=== PATIENT | female | born 1990 | race Caucasian/White ===

== ENCOUNTER 2016-04-23 09:36 | Emergency (ER) | payer SELFPAY ==
[~2016-04-23] VITALS: Wt 71.5 kg
[2016-04-23] MEDS ORDERED: ONDANSETRON 4 MG INJ IV STA (10:11)
[2016-04-23] MEDS ORDERED: SOD CHLORIDE 0.9% 1,000 ML IV STA (10:11)
[2016-04-23 11:14] LABS: URINE BLOOD (Dip) POC Negative (NEGATIVE)
[2016-04-23] MEDS ORDERED: SODI126M NASAL (11:33)
[2016-04-23] MEDS ORDERED: ONDA4TAB8 PO (11:33)
--- NOTE | 2016-04-23 17:15 | ERD ---
DATE OF SERVICE: 04/23/2016 HISTORY OF PRESENT ILLNESS: Patient is a 25-year-old female coming in complaining of URI symptoms. She states she has also had a few episodes of vomiting. She has had no pelvic pain. She is 17 wee ks . Her due date is 09/25/2016. She denies any vaginal bleeding. No pelvic pain. She t ook Claritin earlier today. She has a runny nose, with sore throat with nausea, but no fevers. MEDICAL HISTORY: Autonomic disorder with gastroparesis. ALLERGIES TO MEDICATIONS: SULFA, PREDNISONE. SURGICAL HISTORY: Metal plate in her ulna and tonsillectomy. SOCIAL HISTORY: Denies. REVIEW OF SYSTEMS: A 12-point review of systems was done. Refer to HPI for positives, all other sy stems negative. PHYSICAL EXAMINATION VITAL SIGNS: Temperature is 98.5, pulse 83, blood pressure is 133/68, respiratory 17, O2 saturation 97% on room air. Pain intensity is 0/10. GENERAL: The patient is well-appearing, well-nourished, no acute distress. HEENT: Atraumatic. Conjunctivae are pink. Pupils equal, round, and reactive to light. There is no s cleral icterus. Tympanic membranes clear bilaterally. Oropharynx clear. No nystagmus or photophobia . NECK: C-spine is soft and supple. There is no meningismus. There is no cervical lymphadenopathy. No JVD. No bruits. No goiter. CHEST: Clear to auscultation bilaterally. There are no rales, wheezes or rhonchi. HEART: Regular rate and rhythm. No murmurs, clicks, rubs or gallops. No S3 or S4. ABDOMEN: Soft, nontender and nondistended. Good bowel sounds. No rebound or guarding. No gross alexus tonitis. No gross organomegaly or masses. No Vega sign or McBurney point tenderness. BACK: No midline or flank tenderness. EXTREMITIES: Equal pulses bilaterally. There is no peripheral clubbing, cyanosis or edema. No focal swelling or erythema. Full range of motion. Grossly neurovascularly intact. NEURO: Alert and oriented. Cranial nerves 2-12 intact. Motor strength in all 4 extremities with 5/5 strength. Sensation grossly intact. Normal speech and gait. Babinski negative. DTR 2+ throughout. SKIN: There is no apparent rash or petechia. The skin is warm and dry. HEMATOLOGIC AND LYMPHATIC: There is no evidence of excessive bruising or lymphedema. No gross cervi kaz, axillary, or inguinal lymphadenopathy. PSYCHIATRIC: The patient does not appear anxious or depressed. Normal orientation and judgment. EMERGENCY ROOM COURSE: The patient was given a liter of normal saline in the ER with Zofran p.o. ch allenge. Patient passed p.o. challenge. Patient also had a urine checked in the ER. Patient's uri ne showed trace protein, otherwise negative leukocytes, negative nitrites, negative glucose, negativ e blood. Upon reevaluation, the patient stated her symptoms had improved. DIAGNOSES: 1. Upper respiratory infection. 2. Vomiting. MEDICAL DECISION MAKING: I have low suspicion for complication, low suspicion for acute a bdominal etiology. Low suspicion for meningitis or sepsis, low suspicion for pneumonia, low suspici on for bacterial HEENT infection. DISCHARGE: The patient is discharged stable. Patient given prescription for Zofran and a prescript ion for saline nose rinse. Patient was recommended not to take other cold medication given she is . All other questions answered at time of discharge. Discharge summary given at the time o f departure. Patient understood and complied with plan. Dictated By: NISHI BAUER for JYOTI SIERRA/TRISTAN Conf#: [id number] DID#: [id number]
== END 2016-04-23 11:51 | disposition home or self-care (01) ==
LOC: FTE 09:36
DX: O99.511 Diseases of the respiratory system complicating pregnancy, first trimester (principal); J06.9 Acute upper respiratory infection, unspecified; Z3A.17 17 weeks gestation of pregnancy
CPT/HCPCS: 81003; 96374; 99284; J2405; J7030

== ENCOUNTER 2016-06-06 09:17 | Emergency (ER) | payer OTHER ==
[~2016-06-06] VITALS: Wt 72.4 kg
[~2016-06-06 09:17] MED LIST: ONDA4TAB8 PO; SODI126M NASAL
[2016-06-06] MEDS ORDERED: ACET500C5 PO (10:00)
[2016-06-06] MEDS ORDERED: PRENAT PO (11:24)
[2016-06-06] MEDS ORDERED: CITA20TA11 PO (11:25)
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
== END 2016-06-06 10:42 | disposition home or self-care (01) ==
LOC: FTE 09:17
DX: O9A.212 Injury, poisoning and certain other consequences of external causes complicating pregnancy, second trimester (principal); S16.1XXA Strain of muscle, fascia and tendon at neck level, initial encounter; S29.012A Strain of muscle and tendon of back wall of thorax, initial encounter; V49.40XA Driver injured in collision with unspecified motor vehicles in traffic accident, initial encounter; Z3A.24 24 weeks gestation of pregnancy
CPT/HCPCS: 99282

== ENCOUNTER 2016-06-06 11:00 | Outpatient (CLI) | payer OTHER ==
[~2016-06-06] VITALS: Ht 160 cm; Wt 75.4 kg
[~2016-06-06 11:00] MED LIST changes: +ACET500C5 PO
[2016-06-06] MEDS ORDERED: PRENAT PO (11:24)
[2016-06-06] MEDS ORDERED: CITA20TA11 PO (11:25)
[2016-06-06 11:28] VITALS: BP 108/58; PULSE 68; RESP 18; Ht 160 cm; Wt 75.4 kg
[2016-06-06] MEDS ORDERED: ACETAMINOPHEN 325 MG TAB PO ONE (13:00)
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
== END 2016-06-06 15:40 | disposition home or self-care (01) ==
LOC: OBT 11:00 → L-D 11:01 → OBT 15:40
PROVIDERS: ATTEND Obstetrics & Gynecology
DX: O60.02 Preterm labor without delivery, second trimester (principal); Z3A.24 24 weeks gestation of pregnancy
CPT/HCPCS: 76815; 76817; G0463

== ENCOUNTER 2016-08-27 13:06 | Inpatient (IN) | payer OTHER ==
[~2016-08-27] VITALS: Ht 160 cm; Wt 81.0 kg
[~2016-08-27 13:06] MED LIST changes: -ACET500C5 PO; +CITA20TA11 PO; -ONDA4TAB8 PO; +PRENAT PO; -SODI126M NASAL
[2016-08-27 14:00] VITALS: Ht 160 cm; Wt 81.0 kg
[2016-08-27 14:01] VITALS: BP 117/73; PULSE 71; RESP 20
[2016-08-27] MEDS ORDERED: TERBUTALINE 1 MG/ML INJ SC ONE (14:30)
[2016-08-27] MEDS ORDERED: LACTATED RINGER'S 1,000 ML IV SCH ×2 (14:30→15:35)
--- NOTE | 2016-08-27 15:31 | RADRPT ---
PROCEDURE: US OB biophysical profile. Ultrasound cervix CLINICAL INDICATION: decreased movements, pelvic pain TECHNIQUE: Multiple sonographic images of the pelvis were obtained. In addition, transvaginal imag es of the cervix were obtained. The images were reviewed on a PACS workstation. COMPARISON: No prior studies are available for comparison. FINDINGS: The cervix is markedly short and incompetent and cannot be measured. The cervix is open. There is a single viable intrauterine gestation. Cardiac activity is present with 144 beats per min hamilton. There is a vertex presentation. The placenta is anterior. There is no evidence of placental abruption. There is a normal amount of amniotic fluid with an EDE = 12.4 cm. Biophysical profile: movement 2/2 tone 2/2. breathing 2/2 EDE 2/2 Total 11/21 RPTAT: AA . IMPRESSION: Normal biophysical profile. Cervix is markedly short and incompetent and could not be measured . Open cervix. .Lenin Hua MD, MD Date Time Electronically viewed and signed by .Lenin Hua MD, MD on 08/27/2016 15:31 .S/
[2016-08-27] MEDS ORDERED: AMPICILLIN 2 GM/NS (PMX) 100 ML ONE (15:42)
[2016-08-27 15:49] LABS: ADD SCAN DIFF NO
[2016-08-27 15:54] LABS: BASOPHILS % 0.5 % (0.0-2.0); EOSINOPHILS # 0.1 10^3/ul (0.0-0.5); EOSINOPHILS % 0.9 % (0.0-7.0); HEMATOCRIT 32.5 % (37.0-47.0); LYMPHOCYTES # 1.4 10^3/ul (0.8-2.9); LYMPHOCYTES % 23.2 % (15.0-51.0); MEAN CORPUSCULAR HEMOGLOBIN 28.9 pg (29.0-33.0); MEAN CORPUSCULAR HGB CONC 33.8 g/dl (32.0-37.0); MEAN CORPUSCULAR VOLUME 85.5 fl (82.0-101.0); MEAN PLATELET VOLUME 11.3 fl (7.4-10.4); MONOCYTE # 0.5 10^3/ul (0.3-0.9); MONOCYTES % 8.4 % (0.0-11.0); NEUTROPHIL # 3.8 10^3/ul (1.6-7.5); NEUTROPHILS % 65.8 % (39.0-77.0); PLATELET COUNT 192 10^3/UL (140-415); RED CELL DISTRIBUTION WIDTH 12.6 % (11.5-14.5); WHITE BLOOD COUNT 5.8 10^3/ul (4.8-10.8)
[2016-08-27] MEDS ORDERED: LIDOCAINE 1% (MPF) 30 ML INJ INJ PRN (16:00)
[2016-08-27] MEDS ORDERED: IBUPROFEN 600 MG TAB PO PRN (16:00)
[2016-08-27] MEDS ORDERED: CARBOPROST 250 MCG INJ IM PRN (16:00)
[2016-08-27] MEDS ORDERED: OXYTOCIN 30 UNITS/LR 500 ML IV PRN (16:00)
[2016-08-27] MEDS ORDERED: BUTORPHANOL 2 MG INJ IV PRN (16:00)
[2016-08-27] MEDS ORDERED: MISOPROSTOL 200 MCG TAB PR PRN (16:00)
[2016-08-27] MEDS ORDERED: AMPICILLIN 2 GM/NS (PMX) 100 ML IV ONE (16:00)
[2016-08-27] MEDS ORDERED: METHYLERGONOVINE 0.2 MG INJ IM PRN (16:00)
[2016-08-27] MEDS ORDERED: LACTATED RINGER'S 1,000 ML IV PRN (16:00)
[2016-08-27] MEDS ORDERED: OXYTOCIN 30 UNITS/LR 500 ML IV SCH (16:00)
[2016-08-27 16:09] LABS: INR 0.96; PROTIME 12.8 Sec (12.2-14.2)
[2016-08-27 16:10] LABS: PARTIAL THROMBOPLASTIN TIME 26.2 Sec (25.0-35.0)
[2016-08-27] MEDS ORDERED: BETAMET NA PHOS/AC(6 MG/ML) 5ML INJ IM SCH (16:30)
[2016-08-27] MEDS ORDERED: FENTAnyl 2MCG/ML-ROPIV 0.2% 100 ML ONE (17:25)
[2016-08-27] MEDS ORDERED: NALOXONE (0.4 MG/ML) INJ IV PRN (19:30)
[2016-08-27] MEDS ORDERED: FENTAnyl 2MCG/ML-ROPIV 0.2% 100 ML BAG EPI SCH (19:30)
[2016-08-27] MEDS: AMPICILLIN 1 GM/NS (PMX) 50 ML IV SCH (19:57)
[2016-08-27] MEDS: OXYTOCIN 30 UNITS/LR 500 ML IV SCH (23:56)
[2016-08-28] MEDS: AMPICILLIN 1 GM/NS (PMX) 50 ML IV SCH
[2016-08-28] MEDS: OXYTOCIN 30 UNITS/LR 500 ML IV SCH ×3 (00:25→05:06)
[2016-08-28] MEDS ORDERED: LACTATED RINGER'S 1,000 ML IV* SCH (01:06)
--- NOTE | 2016-08-28 01:15 | LDN ---
Date/Time of Note Date/Time of Note DATE: 08/28/16 TIME: 01:11 Delivery Summary of a viable baby girl weighing 3240 grams or 7# 2oz, 19" long, and with Apgars of 8/9. Weeks of Gestation 35w 6d Placenta Delivered: Spontaneously Meconium: none Episiotomy: No Perineal laceration: 3 Laceration repair: Partial third degree perineal laceration repaired with 2-0 and 3-0 chromic and vicryl sutures. Anesthesia type: Epidural Estimated blood loss: 400 Sponge & Needle done & correct: Yes All needle counts correct: Yes Any foreign bodies felt in the: No (vagina) Problems: Infant Delivery Information Sex Infant Sex: female Apgars 1 Minute: 8 5 Minute: 9 Suctioning Nose & mouth suctioned at alexus: Yes Delee suction performed: Yes Umbilical Cord Umbilical cord with: 3 Vessels Cord presentations: no nuchal cord Cord Blood was obtained: Yes Mother & Baby Disposition Disposition Mom & Baby to Maternity; Good: Yes Baby to NICU: No JOSS VILLAREAL MD August 28, 2016 01:15
--- NOTE | 2016-08-28 01:24 | HP ---
Date/Time of Note Date/Time of Note DATE: 08/28/16 TIME: 01:16 OB - History Hx of Present Free Text/Dictation 25 y.o. G1 with an IUP at 35w 6d came in and been having cramping and mucousy with blood tinged d/c x 2 days and was found to be 6 cm dilated. Estimated Due Date: Sep 25, 2016 : 1 Para: 0 Care: Good Care Ultrasounds: Normal mid trimester US Obstetrical Complications: None Medical Complications: Other (Anxiety/depression. Postural orthostatic tachycardia syndrome (POTS). Gastroparesis. Pelvic laxity.) Past Family/Social History * Past Medical, Surgical, Family and Obstetric Histories reviewed from chart. Blood Type: O+ Rubella: immune RPR/VDRL: Negative GBS Status: Positive HBsAG: Negative OB Admission Exam Vital Signs Vital Signs Vital Signs Date Time Temp Pulse Resp B/P Pulse Ox O2 Delivery O2 Flow Rate FiO2 08/27/16 14:01 97.7 71 20 117/73 Room Air Physical Exam HEENT: WNL Heart: Rhythm Normal Lungs: Clear Abdomen: WNL Extremities: Normal Reflexes: Normal Cervical Dilatation: 6cm Effacement: 75% Station: -2 Membranes: Intact Amniotic Fluid: Clear Heart Rate: 140's Accelerations: Accelerations Present Decelerations: No Decelerations Varibility: Moderate Contractions on Admission: < 5 Minutes Apart Last 72 hours Lab Results CBC & BMP 08/27/16 15:15 OB Assessment/Plan Reason for admission: active labor, labor Plan: Expectant Management Other plan: Betamethasone. Antibiotic prophylaxis JOSS VILLAREAL MD August 28, 2016 01:24
[2016-08-28] MEDS ORDERED: OXYTOCIN 30 UNITS/LR 500 ML IV PRN (01:30)
[2016-08-28] MEDS ORDERED: MISOPROSTOL 200 MCG TAB PR PRN (01:30)
[2016-08-28] MEDS ORDERED: METHYLERGONOVINE 0.2 MG INJ IM PRN (01:30)
[2016-08-28] MEDS ORDERED: LANOLIN 7 GM TUBE TOP PRN (01:30)
[2016-08-28] MEDS ORDERED: BENZOCAINE 20% 56 ML SPRAY TOP PRN (01:30)
[2016-08-28] MEDS ORDERED: WITCH HAZEL/GLYCERIN PAD PR PRN (01:30)
[2016-08-28] MEDS ORDERED: CARBOPROST 250 MCG INJ IM PRN (01:30)
[2016-08-28] MEDS ORDERED: OXYCODONE/ASPIRIN (4.88/325) TAB PO PRN (01:30)
[2016-08-28 03:20] VITALS: BP 116/70; PULSE 62; RESP 20
[2016-08-28] MEDS: IBUPROFEN 600 MG TAB PO SCH ×4 (05:14→23:31)
[2016-08-28 08:00] VITALS: BP 112/65; PULSE 85; RESP 14
[2016-08-28] MEDS: CITALOPRAM 20 MG TAB PO SCH (09:53)
[2016-08-28 12:30] VITALS: BP 118/73; PULSE 88; RESP 16
[2016-08-28 16:30] VITALS: BP 110/68; PULSE 102; RESP 16
[2016-08-28 19:30] VITALS: BP 108/64; PULSE 86; RESP 19
--- NOTE | 2016-08-28 21:05 | QN ---
Documentation Comment PPD #1 Pt doing well but baby went to NICU for poor feeding and low blood sugar so pt is a little weepy. Otherwise mild discomfort from delivery that Advil takes care of. T=99.1 BP 105/64 Fundus is firm. Lochia moderate. Ext NT, no edema. CBC in the AM P: Continue care. As pt delivered just before MN hopefully she will be able to stay until 08/30. JOSS VILLAREAL MD August 28, 2016 21:05
[2016-08-28] MEDS ORDERED: DIPHENHYDRAMINE 25 MG CAP PO PRN (21:30)
[2016-08-29 06:00] VITALS: BP 104/59; PULSE 70; RESP 19
[2016-08-29] MEDS: IBUPROFEN 600 MG TAB PO SCH ×3 (06:09→17:41)
[2016-08-29 07:30] VITALS: BP 98/59; PULSE 72; RESP 18
[2016-08-29 08:16] LABS: ADD SCAN DIFF NO
[2016-08-29 08:22] LABS: BASOPHILS % 0.3 % (0.0-2.0); EOSINOPHILS # 0.1 10^3/ul (0.0-0.5); EOSINOPHILS % 0.6 % (0.0-7.0); HEMATOCRIT 24.3 % (37.0-47.0); LYMPHOCYTES # 2.5 10^3/ul (0.8-2.9); LYMPHOCYTES % 19.6 % (15.0-51.0); MEAN CORPUSCULAR HEMOGLOBIN 28.8 pg (29.0-33.0); MEAN CORPUSCULAR HGB CONC 32.9 g/dl (32.0-37.0); MEAN CORPUSCULAR VOLUME 87.4 fl (82.0-101.0); MEAN PLATELET VOLUME 11.7 fl (7.4-10.4); MONOCYTE # 0.9 10^3/ul (0.3-0.9); MONOCYTES % 6.9 % (0.0-11.0); NEUTROPHIL # 8.8 10^3/ul (1.6-7.5); NEUTROPHILS % 70.5 % (39.0-77.0); PLATELET COUNT 178 10^3/UL (140-415); RED BLOOD COUNT 2.78 10^6/ul (4.20-5.40); WHITE BLOOD COUNT 12.5 10^3/ul (4.8-10.8)
[2016-08-29] MEDS: CITALOPRAM 20 MG TAB PO SCH (09:40)
[2016-08-29] MEDS ORDERED: DIBUCAINE 1% 30 GM OINT TOP PRN (13:30)
[2016-08-29 14:55] LABS: RUBELLA ANTIBODY - IGG 4.74 index
[2016-08-29 17:00] VITALS: BP 112/59; PULSE 68; RESP 19
[2016-08-29] MEDS ORDERED: MAGNESIUM HYDROXIDE 30ML CUP PO ONE (17:00)
--- NOTE | 2016-08-29 20:02 | PD.PPDC ---
NEUROSURGERY SPINE PHYSICIAN Discharge Instruction Condition Patient Condition: Good Diet Diet: Resume Regular Diet Activity/Restrictions Activity: Normal Activity May Shower Restrictions: No Sexual Activity Nothing in the Vagina No Nunda No Tampons, douche Follow-up Follow-up with Physician: 6, Week/Weeks Return to clinic for SLABBER LIGHT Instructions: Fever greater than 101 Chills Worsening abdominal pain Excessive Vaginal Bleeding OB Instructions: Breast Tenderness Depression JOSS VILLAREAL MD August 29, 2016 20:02
--- NOTE | 2016-08-29 20:06 | DS ---
Date/Time of Note Date/Time of Note DATE: 08/29/16 TIME: 20:04 Obstetrical Discharge Record Final Diagnosis Final Diagnosis: delivered Vaginal Delivery Obstetrical Delivery: Spontaneous, Laceration, Repaired Complications Labor Augmentation: No Induction: No Condition on Discharge Physical Assessment Last Vitals: T=98.3 BP 112/59 Voiding: Yes Bowel Movement: Yes Breast: Soft, non-tender Fundus: Firm Episiotomy: Laceration intact. Calf Tenderness: No Patient Condition: JOSS Manning MD August 29, 2016 20:06
[2016-08-29 20:30] VITALS: BP 116/73; PULSE 80; RESP 19
[2016-08-30] MEDS ORDERED: DIPHTH/TET/ACEL PERTUSS (ADULT) 0.5 ML VIAL IM* ONE (09:00)
== END 2016-08-29 23:15 | disposition home or self-care (01) | DRG 775 ==
LOC: OBT 13:06 → L-D 13:06 → OBT 15:25 → PP1 08-28 03:15
PROVIDERS: ADMIT Obstetrics & Gynecology; ATTEND Obstetrics & Gynecology
PROC: 10E0XZZ Delivery of Products of Conception, External Approach (ICD-10-PCS; principal; 2016-08-28)
PROC: 0DQR0ZZ Repair Anal Sphincter, Open Approach (ICD-10-PCS; 2016-08-28)
DX: O60.14X0 Preterm labor third trimester with preterm delivery third trimester, not applicable or unspecified (principal); O70.20 Third degree perineal laceration during delivery, unspecified; Z3A.35 35 weeks gestation of pregnancy; Z37.0 Single live birth
CPT/HCPCS: 36415; 62319; 76817; 76818; 85025; 85610; 85730; 86592; 86762; 86900; 86901; 87340; 96360; 99464; G0463; J0290; J0702; J2590; J3010; J7120

== ENCOUNTER 2018-05-10 09:54 | Day surgery (SDC) | payer OTHER ==
--- NOTE | 2018-05-09 21:46 | HP ---
Date/Time of Note Date/Time of Note DATE: 05/09/18 TIME: 21:28 Assessment/Plan VTE Prophylaxis SCD contraindicated: low risk/ambulating Pharmacological prophylaxis: NA/contraindicated Pharm contraindication: low risk/ambulating Lines/Catheters IV Catheter Type (from Nrsg): Peripheral IV Central line still needed: No Urinary Cath still in place: No Assessment/Plan Assessment/Plan A: Desires permanent sterilization. POT syndrome. Fibromyalgia. Chronic fatigue. Arthritis. Anxiety d/o. Depression. Gastroparesis. P: Laparoscopic bilateral tubal fulguration. Remove IUD. HPI/ROS Admit Date/Time Admit Date/Time May 10, 2018 Hx of Present Illness 27 y.o. currently with an IUD in place requesting permanent sterilization and is planned for a laparoscopic bilateral tubal fulguration. ROS Constitutional: no complaints Respiratory: no complaints Cardiovascular: no complaints Gastrointestinal: no complaints Genitourinary: no complaints Musculoskeletal: no complaints Psychological: no complaints, nl mood/affect PMH/Family/Social Past Medical History Pt has POTS (postural orthostatic tachycardia syndrome), a disorder of the autonomic nervous system and for which, to minimize problems during anesthesia and procedures, she needs to be well hydrated and blocks (epidural and spinals) need to be very slow! Fibromyalgia. Arthritis. Chronic fatigue. Anxiety d/o. Major depression;sees a therapist and a psychiatrist. Gastroparesis Medications Effexor 150 mg. Naltrexone 3 mg q day. Mirena IUD. Coded Allergies: prednisone (Verified Allergy, Intermediate, MOOD CHANGES, 06/06/16) Sulfa (Sulfonamide Antibiotics) (Verified Allergy, Mild, HIVES, 06/06/16) Past Surgical History [place] teeth. Metal plate right ulna. Family History Significant Family History: cancer (Paternal GM-breast), diabetes (mother), hypertension (maternal GF) Social History Alcohol Use: rarely Smoking Status: Never smoker Drug Use: none Exam/Review of Systems Vital Signs Vitals BP 114/70 Exam Constitutional: alert, oriented, well developed Psych: no complaints, nl mood/affect Head: normocephalic, atraumatic Neck: supple, non-tender Respiratory: clear to auscultation, normal air movement Cardiovascular: regular rate and rhythm Gastrointestinal: soft, nl liver, spleen, non-tender Genitourinary - Female: nl adnexae, nl external genitalia Musculoskeletal: nl extremities to inspection, nl gait and stance Neurological: nl mental status, nl speech JOSS VILLAREAL MD May 09, 2018 21:39
[~2018-05-10] VITALS: Ht 160 cm; Wt 81.8 kg
[2018-05-10] VITALS (12 sets, daily range): BP systolic 103–121; BP diastolic 49–78; PULSE 62–96; RESP 16–23; Ht 160 cm; Wt 81.8 kg
[~2018-05-10 09:54] MED LIST changes: +NALTREXONE 3 MG; +VENL150C PO
[2018-05-10] MEDS ORDERED: LACTATED RINGER'S 500 ML IV ONE (10:00)
[2018-05-10] MEDS ORDERED: VENL150C PO (10:53)
[2018-05-10] MEDS ORDERED: TREX50 PO (10:54)
[2018-05-10] MEDS ORDERED: LACTATED RINGER'S 1,000 ML IV SCH (11:00)
[2018-05-10] MEDS ORDERED: BUPIVACAINE 0.25% (MPF) 30 ML INJ ONE (12:15)
--- NOTE | 2018-05-10 12:26 | PREAC ---
Date/Time of Note Date/Time of Note DATE: 05/10/18 TIME: 12:23 Anesthesia Eval and Record Evaluation Time Pre-Procedure Interview DATE: 05/10/18 TIME: 12:23 Age 27 Sex female NPO: 8 hrs Preoperative diagnosis sterilization Planned procedure BTL Past Medical History Past Medical History: Includes Cardio: Dyslipidemia Neuro: Peripheral neuropathy GI: GERD, Obesity, Morbid obesity Psych: Anxiety Surgery & Anesthesia Issues No known issue Meds Anticoagulation: No Beta Joby within 24 hr: No Reason Beta Joby not given: Pt. not on B-Joby Reported Medications Naltrexone Hcl (Trexan) 50 Mg Tab, 3 MG PO DAILY, TAB 05/10/18 Venlafaxine Hcl* (Effexor XR*) 150 Mg Cap.sr.24h, 150 MG PO DAILY, CAP 05/10/18 Discontinued Reported Medications Venlafaxine Hcl* (Effexor XR*) 150 Mg Cap.sr.24h, 150 MG PO DAILY, CAP 05/09/18 [Naltrexone 3 Mg] No Conflict Check, 3 MG DAILY 05/09/18 Citalopram Hydrobromide* (Celexa*) 20 Mg Tablet, 20 MG PO DAILY, #30 TAB 06/06/16 Multivit/Min/Fol Ac/Iron/Pren* ( S*) 1 Tab Tab, 1 TAB PO DAILY, TAB 06/06/16 Current Medications Lactated Ringer's 1,000 ml @ 125 mls/hr Q8H IV ; Start 05/10/18 at 11:00 Meds reviewed: Yes Allergies Coded Allergies: prednisone (Verified Allergy, Intermediate, MOOD CHANGES, 05/10/18) Sulfa (Sulfonamide Antibiotics) (Verified Allergy, Mild, HIVES, 05/10/18) Allergies Reviewed: Yes Labs/Studies Labs Reviewed: Reviewed by anesthesiologist test: Negative Pre-procedure Exam Last vitals Vital Signs Date Temp Pulse Resp B/P (MAP) Pulse Ox O2 O2 Flow FiO2 Time Delivery Rate 05/10/18 98.5 93 18 119/71 98 Room Air 11:53 (87) Airway: Adequate mouth opening, Adequate thyromental dist Mallampati: Mallampati II Teeth: Normal Lung: Normal Heart: Normal ASA Physical Status ASA physical status: 2 Emergency: None Planned Anesthetic General/MAC: ETT Planned Pain Management Parenteral pain med, Local by surgeon Pre-operative Attestations Prior to commencing anesthesia and surgery, the patient was re-evaluated, there was verification of: *The patient's identity *The results of appropriate recent lab work and preoperative vital signs *The above evaluation not changing prior to induction *Anesthetic plan, risk benefits, alternative and complications discussed with patient/family; questions answered; patient/family understands, accepts and wishes to proceed. ALIZE COOPER MD May 10, 2018 12:26
[2018-05-10] MEDS ORDERED: MIDAZOLAM 1 MG/ML 2 ML INJ ONE (12:30)
[2018-05-10] MEDS ORDERED: CEFAZOLIN 1 GM INJ ONE (14:10)
[2018-05-10] MEDS ORDERED: LIDOCAINE 2% (SDV) 5 ML INJ ONE (14:10)
[2018-05-10] MEDS ORDERED: PROPOFOL 20 ML ONE (14:10)
[2018-05-10] MEDS ORDERED: ONDANSETRON 4 MG INJ ONE ×2 (14:11→14:38)
[2018-05-10] MEDS ORDERED: NEOSTIGMINE 3 MG/3 ML SYRINGE ONE (14:21)
[2018-05-10] MEDS ORDERED: GLYCOPYRROLATE 0.4 MG INJ ONE (14:21)
[2018-05-10] MEDS ORDERED: ONDANSETRON 4 MG INJ IV PRN (14:30)
[2018-05-10] MEDS ORDERED: METOCLOPRAMIDE 10 MG INJ IV PRN (14:30)
[2018-05-10] MEDS ORDERED: FENTAnyl 50 MCG/ML VIAL IV PRN (14:30)
[2018-05-10] MEDS ORDERED: HYDROmorphONE 1 MG/5 ML IV SYRINGE IV PRN (14:30)
[2018-05-10] MEDS ORDERED: MEPERIDINE 25 MG INJ IV PRN (14:30)
[2018-05-10] MEDS ORDERED: DIPHENHYDRAMINE 50 MG INJ IV PRN (14:30)
[2018-05-10] MEDS ORDERED: KETOROLAC 30 MG INJ IV PRN (14:30)
--- NOTE | 2018-05-10 14:32 | PAC ---
Date/Time of Note Date/Time of Note DATE: 05/10/18 TIME: 14:32 Post-Anesthesia Notes Post-Anesthesia Note Last documented vital signs Vital Signs Date Temp Pulse Resp B/P (MAP) Pulse Ox O2 O2 Flow FiO2 Time Delivery Rate 05/10/18 98.5 93 18 119/71 98 Room Air 11:53 (87) Activity: WNL Respiratory function: WNL Cardiovascular function: WNL Mental status: Baseline Pain reasonably controlled: Yes Hydration appropriate: Yes Nausea/Vomiting absent: Yes Comments 125/67,pulse:78, spo2:99, T:98,4 ALIZE COOPER MD May 10, 2018 14:32
[2018-05-10] MEDS ORDERED: HYDROmorphONE 1 MG/5 ML IV SYRINGE IV ONE (14:38)
[2018-05-10] MEDS: HYDROmorphONE 1 MG/5 ML IV SYRINGE IV PRN ×2 (14:48→14:56)
--- NOTE | 2018-05-10 15:00 | PD.PPDC ---
DESIGN VERIFICATION ENGINEER Discharge Instruction Condition [id number] Patient Condition: [id number] Good Diet [id number] Diet: Ijzhb4e Resume Regular Diet Activity/Restrictions [id number] Activity: Prqbv7m Normal Activity [id number] Restrictions: Gaxct9u No Exercising Wound/Drain Care Instructions [id number] Wound/Drain Care Instructions: Nqgee6s Keep clean and dry Follow-up Follow-up with Physician: 2, Week/Weeks Return to clinic for [id number] STOCK REPAIRER Instructions: Apmls2i Fever greater than 101 Chills Worsening abdominal pain Excessive Vaginal Bleeding [id number] Surgical Instructions: [id number] Incisional Drainage Incisional Redness JOSS VILLAREAL MD May 10, 2018 15:00
--- NOTE | 2018-05-10 15:26 | OPR ---
Date/Time of Note Date/Time of Note DATE: 05/10/18 TIME: 15:05 Operative Report Procedure Date: May 10, 2018 Preoperative Diagnosis Desires permanent sterilization. Postoperative Diagnosis Same. Operation/Procedure Performed Laparoscopic bilateral tubal fulguration. Removal of IUD. Surgeon see signature line Funeral Director And Embalmer none Anesthesia Type: general Anesthesiologist: ALIZE COOPER MD Estimated Blood Loss: minimal Transfusion none Specimen IUD Grafts/Implants none Complications none Pt Condition Post Procedure: stable Disposition: PACU Procedure Description Pt was brought to the OR and placed on the OR table and placed under general anesthesia. Her legs were then placed in laparoscopy stirrups and she was prepped and draped in the usual sterile fashion. A sponge stick was placed into the vaginal vault. A knife was used to incise the infraumbilical area, a Varess needle was placed and the abdomen was insufflated to 15 mm Hg..A 5 mm trocar was then placed. The pt was placed in Trendelenberg position and the abdomen was well visualized. The uterus was very retroflexed. Another trocar was placed in the left abdomen. Using the sponge stick in the vagina to apply pressure to the uterus and move it into midposition, the Gyrus was used to flip the tubes up and a midportion of each tube was cauterized several times and then a cut was made in the middle of the cauterized position. There was excellent hemostasis at all times. There were no obvious signs of scar tissue nor of endometriosis. The left trocar was then removed under visualization and the site was dry. The other trocar was vented to remove the gas and then removed. 3-0 Monocryl was used to close the incisions in a subcuticular stitch. Bandaids were applied after.Pt was awakened from general anesthesia and transported to the recovery room having tolerated the procedure well. JOSS VILLAREAL MD May 10, 2018 15:25
== END 2018-05-10 16:40 | disposition home or self-care (01) ==
LOC: SDS 09:54
PROVIDERS: ATTEND Obstetrics & Gynecology
DX: Z30.2 Encounter for sterilization (principal); E66.9 Obesity, unspecified; K21.9 Gastro-esophageal reflux disease without esophagitis
CPT/HCPCS: 58670; 80048; 85025; J0690; J1170; J2250; J2405; J2710; J3010; 88300